=== PATIENT | female | born 1965 | race Hispanic/Latino ===

== ENCOUNTER 2019-07-10 00:57 | Emergency (ER) | payer SELFPAY ==
[2019-07-10] MEDS ORDERED: HALDOL IV ONE (01:38)
[2019-07-10] MEDS ORDERED: TORADOL IM ONE (01:38)
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
[2019-07-10] MEDS ORDERED: NACL 0.9% 1000 ML 1,000 ML IV ONE (02:23)
[2019-07-10] MEDS ORDERED: HALDOL IM ONE (02:32)
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
[2019-07-10 03:08] LABS: Basophils # (Auto) 0.1 K/mm3 (0.0-0.1); Basophils % (Auto) 0.5 % (0.0-1.8); Eosinophils # (Auto) 0.1 K/mm3 (0.0-0.4); Eosinophils % (Auto) 0.7 % (0.0-4.3); Hematocrit 39.7 % (30.3-42.9); Hemoglobin 13.2 gm/dl (10.1-14.3); Lymphocytes # (Auto) 0.7 K/mm3 (1.2-5.4); Lymphocytes % (Auto) 5.9 % (13.4-35.0); Mean Corpuscular HGB Conc 33 % (30-34); Mean Corpuscular Volume 93 fl (79-97); Monocytes # (Auto) 1.1 K/mm3 (0.0-0.8); Monocytes % (Auto) 9.3 % (0.0-7.3); Platelet Count 296 K/mm3 (140-440); Red Blood Count 4.29 M/mm3 (3.65-5.03); Red Cell Distribution Width 13.1 % (13.2-15.2)
[2019-07-10 03:12] LABS: INR 1.02 (0.87-1.13)
[2019-07-10 03:13] LABS: Partial Thromboplastin Time 21.5 Sec. (24.2-36.6)
[2019-07-10 03:26] VITALS: BP 113/65
[2019-07-10 03:36] LABS: BUN/Creatinine Ratio 30; Blood Urea Nitrogen 15 mg/dL (7-17); Hemolysis Index 4
[2019-07-10] MEDS ORDERED: MORPHINE IV ONE (04:06)
[2019-07-10] MEDS ORDERED: MORPHINE ONE (04:09)
== END 2019-07-10 04:22 | disposition other institution (70) ==
LOC: ED 00:57
DX: S72.011A Unspecified intracapsular fracture of right femur, initial encounter for closed fracture (principal); Z98.890 Other specified postprocedural states; Z90.49 Acquired absence of other specified parts of digestive tract; W18.30XA Fall on same level, unspecified, initial encounter; Y93.89 Activity, other specified; Y92.89 Other specified places as the place of occurrence of the external cause; Y99.8 Other external cause status
CPT/HCPCS: 36415; 73502; 80048; 85025; 85610; 85730; 96372; 96374; 99285; J1630; J1885; J2270; J7030; 96361

== ENCOUNTER 2019-12-23 07:21 | Emergency (ER) | payer SELFPAY | END 2019-12-23 08:04 | disposition left against medical advice (07) | LOC: ED 07:21 | DX: R07.89 Other chest pain (principal); R06.02 Shortness of breath; Z53.21 Procedure and treatment not carried out due to patient leaving prior to being seen by health care provider | CPT/HCPCS: 93005; 93010 ==